=== PATIENT | male | born 1985 | race Caucasian/White ===

== ENCOUNTER 2018-04-26 14:57 | Emergency (ER) | payer OTHER ==
[2018-04-26 15:12] VITALS: BP 164/95
[2018-04-26] MEDS ORDERED: OXYCODONE-ACETAMINOPHEN 5-325 MG TABLET PO ONE (15:33)
--- NOTE | 2018-04-26 15:35 | ER Document Report ---
ED Medical Screen (RME) - General Chief Complaint: Finger Injury Stated Complaint: THUMB INJURY Time Seen by Provider: 04/26/18 15:07 TRAVEL OUTSIDE OF THE [place] IN LAST 30 DAYS: No - HPI Patient complains to provider of: Left thumb injury Notes: 04/26/18 15:34 Patient is a 33-year-old otherwise healthy male, presenting to the emergency room complaining of injury to his left finger, was working on a riding lawnmower that was up on a stand and not running, when the lawnmower fell off of the stand crushing his thumb in the process, his last tetanus shot was within the last 2 years - Related Data Allergies/Adverse Reactions: amoxicillin Allergy (Verified 04/26/18 15:02) Penicillins Allergy (Verified 04/26/18 15:02) Past Medical History Traumatic Medical History: Reports: Hx Traumatic Brain Injury Physical Exam - Vital signs Vitals: Temp Pulse Resp BP Pulse Ox 97.4 F 82 16 164/95 H 97 04/26/18 15:11 04/26/18 15:11 04/26/18 15:11 04/26/18 15:11 04/26/18 15:11 Course - Vital Signs Vital signs: Temp Pulse Resp BP Pulse Ox 97.4 F 82 16 164/95 H 97 04/26/18 15:11 04/26/18 15:11 04/26/18 15:11 04/26/18 15:11 04/26/18 15:11
--- NOTE | 2018-04-26 16:16 | RADIOLOGY REPORT (SQ) ---
EXAM DESCRIPTION: FINGER LEFT COMPLETED DATE/TIME: 04/26/2018 4:01 pm REASON FOR STUDY: injury thumb . 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 COMPARISON: None. NUMBER OF VIEWS: Three views. TECHNIQUE: AP view of the left hand and lateral, and oblique images acquired of the left thumb. LIMITATIONS: None. FINDINGS: MINERALIZATION: Normal. BONES: There is a comminuted fracture extending throughout the 1st distal phalanx with displaced frac ture fragments at the tuft and at the base. SOFT TISSUES: Soft tissue swelling and irregularity at the 1st distal phalanx. No radiopaque foreign body. IMPRESSION: Soft tissue injury with comminuted fracture at the 1st distal phalanx with displaced fra cture fragments at the tuft and at the base. COMMENT: SITE OF TRAUMA/COMPLAINT MARKED/STAMP COMPLETED: NOT APPLICABLE. TECHNICAL DOCUMENTATION: JOB ID: [id number] [employer]- All Rights Reserved Reading location - IP/workstation name: [email or web address]
[2018-04-26] MEDS ORDERED: LIDOCAINE 1% INJ-PF (10 MG/ML) 30 ML SDV INJ ONE (16:19)
[2018-04-26] MEDS ORDERED: BUPIVACAINE HCL 0.5 % INJ/PF 30 ML SDV INJ ONE (16:19)
--- NOTE | 2018-04-26 19:28 | ER Document Report ---
ED General - General Chief Complaint: Finger Injury Stated Complaint: THUMB INJURY Time Seen by Provider: 04/26/18 15:07 Notes: 33-year-old female presents emergency department stating that he was working on a lawnmower at work when the lucinda gave out and it landed on his left thumb. States that his biggest injuries to his left thumb however he also has some pain to the tip of his left second digit. He complains of severe pain, states he cannot bend his left thumb. States that there is quite a bit of bleeding. TRAVEL OUTSIDE OF THE [place] IN LAST 30 DAYS: No - Related Data Allergies/Adverse Reactions: amoxicillin Allergy (Verified 04/26/18 15:02) Penicillins Allergy (Verified 04/26/18 15:02) Past Medical History - General Information source: Patient - Social History Smoking Status: Current Every Day Smoker Cigarette use (# per day): Yes Frequency of alcohol use: Occasional Drug Abuse: None Family History: None Patient has suicidal ideation: No Patient has homicidal ideation: No Renal/ Medical History: Denies: Hx Peritoneal Dialysis Traumatic Medical History: Reports: Hx Traumatic Brain Injury Review of Systems - Review of Systems Constitutional: No symptoms reported Cardiovascular: No symptoms reported Respiratory: No symptoms reported Musculoskeletal: See HPI Skin: See HPI Neurological/Psychological: No symptoms reported. denies: Numbness, Tingling Physical Exam - Vital signs Vitals: Temp Pulse Resp BP Pulse Ox 97.4 F 82 16 164/95 H 97 04/26/18 15:11 04/26/18 15:11 04/26/18 15:11 04/26/18 15:11 04/26/18 15:11 Interpretation: Hypertensive - General General appearance: Alert, Other - Appears mildly uncomfortable and somewhat anxious. In distress: Mild - HEENT Head: Normocephalic, Atraumatic Eyes: Normal Pupils: PERRL Mucous membranes: Moist - Respiratory Respiratory status: No respiratory distress - Cardiovascular Pulses: Normal: Radial - Extremities Notes: left thumb has multiple lacerations, the nail is almost completely avulsed, there is a laceration to the nail bed, there is some arteriolar bleeding from the ulnar aspect of the nailbed and there is a moderate amount of avulsed skin. There is a laceration to the palmar aspect of the left thumb along the IP crease, 2 cm long and a second laceration along the base of the nail, continuing radially that is 1.5 cm long. Sensation is intact along the tip of the finger. Initially he was unable to move his finger although this turned out to be due to pain. After suturing and numbing patient was able to minimally flex and extend his left thumb at the IP joint, no difficulty flexing or extending at the MCP joint. Course - Re-evaluation Re-evalutation: 04/26/18 19:28 X-ray shows soft tissue injury with comminuted fracture at the first distal phalanx with a displaced fracture fragments at the tuft and at the base. The wound was irrigated, discussed with Dr. Alcantar the orthopedic surgeon on-call , states that we should irrigate it, start antibiotics, approximated as best as I can and splinted and dressed it with Xeroform gauze. Patient should follow- up with Dr. Daniels on Sunday. Dr. Alcantar recommended Augmentin however reviewing the patient's allergies he is allergic to amoxicillin so instead of started on Augmentin patient will be started on Bactrim and Keflex. - Vital Signs Vital signs: Temp Pulse Resp BP Pulse Ox 97.4 F 82 16 164/95 H 97 04/26/18 15:11 04/26/18 15:11 04/26/18 15:11 04/26/18 15:11 04/26/18 15:11 Procedures - Immobilization Left Thumb Pre-Proc Neuro Vasc Exam: Normal Immobilizer type: Finger splint (Static) Performed by: RN Post-Proc Neuro Vasc Exam: Abnormal - Digital block still intact, sensation absent to the left thumb due to digital block. Alignment checked and good: Yes - Laceration/Wound Repair Left Thumb Wound length (cm): 4 - 4 cm total Wound's Depth, Shape: Into muscle, Irregular, Flap, Nail-avulsed, Contused tissue Laceration pre-procedure: Sterile PPE donned, Chloraprep applied, Sterile drapes applied, Shur-Clens applied Anesthetic type: Other - Combination of 1% lidocaine and 0.5% bupivacaine Volume Anesthetic (mLs): 10 Wound explored: No foreign body removed, Contaminated - Grease and dirt. Irrigated w/ Saline (mLs): 1,000 Wound Debrided: Moderate Wound Repaired With: Sutures Suture Size/Type: 5:0, Ethilon Number of Sutures: 10 Layer Closure?: No Post-procedure wound care: Sterile dressing applied, Splint applied Post-procedure NV exam normal: Yes Complications: No Discharge - Discharge Clinical Impression: Fracture of thumb, left, open Qualifiers: Encounter type: initial encounter Phalanx: distal Fracture alignment: displaced Qualified Code(s): S62.522B - Displaced fracture of distal phalanx of left thumb, initial encounter for open fracture Laceration of left thumb with damage to nail Qualifiers: Encounter type: initial encounter Foreign body presence: without foreign body Qualified Code(s): S61.112A - Laceration without foreign body of left thumb with damage to nail, initial encounter Condition: Stable Disposition: HOME, SELF-CARE Instructions: Laceration Care ([facility]) Additional Instructions: Please keep the wound clean and dry. Please keep wearing the splint. Please follow-up with Dr. Daniels in his office on Sunday. Please call first thing Sunday morning to arrange an outpatient appointment. Please return to the emergency department for any new or concerning symptoms. Take the antibiotics as directed until they are gone. Prescriptions: Cephalexin Monohydrate [Keflex 500 mg Capsule] 1,000 mg PO BID #28 capsule Oxycodone HCl/Acetaminophen [Percocet 5-325 mg Tablet] 1 - 2 tab PO ASDIR PRN # 15 tablet PRN Reason: Sulfamethoxazole/Trimethoprim [Bactrim Ds Tablet] 1 each PO BID #14 tablet Forms: Return to Work Referrals: ARRON DANIELS DO [ACTIVE STAFF] - 04/29/18
[2018-04-26] MEDS ORDERED: SULFAMETHOXAZOLE/TRIMETHOPRIM 800-160 MG TABLET PO ONE (19:30)
[2018-04-26] MEDS ORDERED: CEPHALEXIN 500 MG CAPSULE PO ONE (19:30)
== END 2018-04-26 20:00 | disposition home or self-care (01) ==
LOC: ER 14:57
DX: S62.522B Displaced fracture of distal phalanx of left thumb, initial encounter for open fracture (principal); W20.8XXA Other cause of strike by thrown, projected or falling object, initial encounter; Y93.89 Activity, other specified; Y99.8 Other external cause status; F17.210 Nicotine dependence, cigarettes, uncomplicated; Z88.0 Allergy status to penicillin
CPT/HCPCS: 99283; 73140; 12002; J3490 ×2

== ENCOUNTER 2018-04-29 08:07 | Emergency (ER) | payer OTHER ==
--- NOTE | 2018-04-29 08:21 | ER Document Report ---
HPI - HPI Patient complains to provider of: belkysjose wound rechecked Onset: Other Pain Level: 4 Context: 33-year-old male had a riding lawnmower fall on his left thumb causing comminuted tuft fracture and distal phalanx fx with skin injury, nail removed. He was seen in the emergency department. He was sutured and they put Xeroform gauze over it. He is concerned because it is still oozing blood. They went to Dr. Daniels's office today and was given paperwork to fill out and will schedule an appointment this week told him to come to the emergency room to check the wound. Associated Symptoms: None Exacerbated by: Denies, Movement Relieved by: Denies Past Medical History - General Information source: Patient - Social History Smoking Status: Current Every Day Smoker Frequency of alcohol use: None Drug Abuse: None Occupation: [employer] Lives with: Family Family History: None - Medical History Medical History: Negative Renal/ Medical History: Denies: Hx Peritoneal Dialysis Traumatic Medical History: Reports: Hx Traumatic Brain Injury Surgical Hx: Negative Vertical Provider Document - CONSTITUTIONAL Agree With Documented VS: Yes Exam Limitations: No Limitations General Appearance: No Apparent Distress - INFECTION CONTROL TRAVEL OUTSIDE OF THE [place] IN LAST 30 DAYS: No - MUSCULOSKELETAL/EXTREMETIES Musculoskeletal/Extremeties: Tender - Minimal tender there is no signs of infection I did leave the Xeroform gauze on because there is no erythema to the thumb at all. The sutured area that is visible from the plantar thumb is clean and healthy-appearing - NEURO Motor/Sensory: No Sensory Deficit Course - Re-evaluation Re-evalutation: 04/29/18 I washed the wound liberally with antibacterial soap and water dried, bacitracin , Telfa, gauze and Coban and replaced the splint and told them that they needed to follow-up with Dr. daniels tomorrow. Patient did state that it is not bleeding or oozing like it was yesterday. Vital signs were stable and he is afebrile. See the scanned part of the chart that has is vital signs on it. I took his vital signs but did not know how to put them in [employer] Temperature was 97.8. Josefina RN was to put them in the system. Discharge - Discharge Clinical Impression: Encounter for wound re-check Condition: Good Disposition: HOME, SELF-CARE Instructions: Fractured Finger ([facility]), Laceration Care ([facility]) Additional Instructions: Schedule your appointment for recheck with Dr. daniels in the next day or 2 It is okay to remove the splint and keep the wound open to air if you prefer there is absolutely no risk of bending or trauma Bacitracin can be used Return to the emergency room for any fever swelling redness pus Referrals: ARRON DANIELS DO [ACTIVE STAFF] - 04/30/18
== END 2018-04-29 08:45 | disposition home or self-care (01) ==
LOC: ER 08:07
DX: S62.522D Displaced fracture of distal phalanx of left thumb, subsequent encounter for fracture with routine healing (principal); S61.102D Unspecified open wound of left thumb with damage to nail, subsequent encounter; W20.8XXD Other cause of strike by thrown, projected or falling object, subsequent encounter; F17.200 Nicotine dependence, unspecified, uncomplicated
CPT/HCPCS: 99282

== ENCOUNTER 2018-05-03 21:49 | Emergency (ER) | payer OTHER ==
[2018-05-03 21:55] VITALS: BP 124/81
[2018-05-04] MEDS ORDERED: LIDOCAINE 1%/EPINEPHRINE INJ 20 ML VIAL INJ ONE (00:07)
--- NOTE | 2018-05-04 02:22 | RADIOLOGY REPORT (SQ) ---
EXAM DESCRIPTION: XR HAND 3 OR MORE VIEWS COMPLETED DATE/TME: 05/04/2018 01:29 CLINICAL HISTORY: 33 years, Male, eval for infection left thumb COMPARISON: 04/26/2018 FINDINGS: Redemonstrated comminuted mildly displaced fracture of the left first distal phalanx. Minimal periosteal elevation. No lytic osseous lesions. Mild soft tissue edema. IMPRESSION: 1. Redemonstrated comminuted fractures of the left first distal phalanx. 2. No definite radiographic evidence of osteomyelitis. 2011 [employer]- All Rights Reserved
[2018-05-04] MEDS ORDERED: DOXYCYCLINE HYCLATE 100 MG TABLET PO ONE (02:27)
--- NOTE | 2018-05-04 02:29 | ER Document Report ---
ED General - General Chief Complaint: Wound Recheck Stated Complaint: L THUMB DISCHARGE Time Seen by Provider: 05/03/18 23:52 Mode of Arrival: Ambulatory Information source: Patient Notes: Patient is a 33-year-old male who presents with possible infection to his left thumb. Patient reports he was seen here approximately 10 days ago, had a fracture in his thumb and had sutures placed. Patient reports he has been trying to follow-up with [facility] as directed, reports that he has not been able to see or so due to some type of insurance issues. TRAVEL OUTSIDE OF THE [place] IN LAST 30 DAYS: No - Related Data Allergies/Adverse Reactions: amoxicillin Allergy (Verified 04/29/18 08:23) Penicillins Allergy (Verified 04/29/18 08:23) Past Medical History - General Information source: Patient - Social History Smoking Status: Current Every Day Smoker Frequency of alcohol use: None Drug Abuse: None Family History: None Patient has suicidal ideation: No Patient has homicidal ideation: No - Medical History Medical History: Negative Renal/ Medical History: Denies: Hx Peritoneal Dialysis Traumatic Medical History: Reports: Hx Traumatic Brain Injury Surgical Hx: Negative - Immunizations Immunizations up to date: Yes Hx Diphtheria, Pertussis, Tetanus Vaccination: Yes Review of Systems - Review of Systems Constitutional: No symptoms reported EENT: No symptoms reported Cardiovascular: No symptoms reported Respiratory: No symptoms reported Gastrointestinal: No symptoms reported Genitourinary: No symptoms reported Male Genitourinary: No symptoms reported Musculoskeletal: No symptoms reported Skin: See HPI Hematologic/Lymphatic: No symptoms reported Neurological/Psychological: No symptoms reported Physical Exam - Vital signs Vitals: Temp Pulse Resp BP Pulse Ox 97.3 F 57 L 18 124/81 99 05/03/18 21:54 05/03/18 21:54 05/03/18 21:54 05/03/18 21:54 05/03/18 21:54 - Notes Notes: PHYSICAL EXAMINATION: GENERAL: Well-appearing, well-nourished and in no acute distress. HEAD: Atraumatic, normocephalic. EYES: Pupils equal round and reactive to light, extraocular movements intact, sclera anicteric, conjunctiva are normal. ENT: Nares patent, oropharynx clear without exudates. Moist mucous membranes. NECK: Normal range of motion, supple without lymphadenopathy. LUNGS: Breath sounds clear to auscultation bilaterally and equal. No wheezes rales or rhonchi. HEART: Regular rate and rhythm without murmurs ABDOMEN: Soft, nontender, nondistended abdomen. No guarding, no rebound. No masses appreciated. Musculoskeletal: Normal range of motion, no pitting or edema. No cyanosis. NEUROLOGICAL: Cranial nerves grossly intact. Normal speech, normal gait. Normal sensory, motor exams PSYCH: Normal mood, normal affect. SKIN: Erythema, swelling and yellow drainage noted to left thumb at laceration site. No streaking. No swelling in the hand itself.. Course - Re-evaluation Re-evalutation: Right-hand dominant patient who presents with request for suture removal and evaluation of possible infection to his incision. Sutures were removed from left thumb, digital block applied to left thumb and thumb was cleaned thoroughly. Patient will be started on additional antibiotic for cellulitis of the wound. Referral will be placed in case picker's box to see if she can assist patient with getting [facility] follow-up. - Vital Signs Vital signs: Temp Pulse Resp BP Pulse Ox 97.3 F 57 L 18 124/81 99 05/03/18 21:54 05/03/18 21:54 05/03/18 21:54 05/03/18 21:54 05/03/18 21:54 Discharge - Discharge Clinical Impression: Encounter for wound re-check, Encounter for removal of sutures Condition: Stable Disposition: HOME, SELF-CARE Additional Instructions: Cellulitis You have an infection of your skin and underlying soft tissues called cellulitis. This is due to bacteria, which can enter through any break in the skin, or even through an irritated hair follicle. Untreated, cellulitis will usually worsen. Antibiotics are required. Usually, warm packs or warm soaks, and elevation of the infected area are recommended. You should start getting better within 24 to 36 hours. Most infections respond quickly to the right medication. Follow-up care is important, however, to check for abscess (boil) formation, unsuspected foreign body, or resistant infection. If you develop fever, chills, or if the area of infection is becoming rapidly more swollen or painful, call the doctor at once. Prescriptions: Doxycycline Hyclate 100 mg PO BID #14 capsule Referrals: ARRON DANIELS DO [ACTIVE STAFF] - Follow up as needed
== END 2018-05-04 03:47 | disposition home or self-care (01) ==
LOC: ER 21:49
DX: S62.522D Displaced fracture of distal phalanx of left thumb, subsequent encounter for fracture with routine healing (principal); S61.012D Laceration without foreign body of left thumb without damage to nail, subsequent encounter; L03.012 Cellulitis of left finger; X58.XXXD Exposure to other specified factors, subsequent encounter
CPT/HCPCS: 99282; 73130; J3490

== ENCOUNTER 2019-01-19 22:18 | Emergency (ER) | payer SELFPAY ==
[2019-01-19 22:43] VITALS: BP 138/86
[2019-01-19] MEDS ORDERED: CLINDAMYCIN HCL 150 MG CAPSULE PO ONE (22:54)
[2019-01-19] MEDS ORDERED: ONDANSETRON 4 MG TAB.RAPDIS PO ONE (22:56)
[2019-01-19] MEDS ORDERED: OXYCODONE-ACETAMINOPHEN 5-325 MG TABLET PO ONE (22:56)
--- NOTE | 2019-01-19 23:02 | ER Document Report ---
HPI - HPI Time Seen by Provider: 01/19/19 22:54 Pain Level: Denies Notes: Patient is a 33-year-old male who presents to the emergency department with chief complaint of left upper dental pain. Patient states that this pain developed yesterday and has gradually gotten worse. Patient states that this is happened before and thinks that he may have a dental abscess. Denies drainage but states that at times he will have a bad taste in his mouth. Denies fever. Denies facial swelling or tongue swelling. - CONSTITUTIONAL Constitutional: DENIES: Fever, Chills - EENT EENT: DENIES: Sore Throat, Ear Pain, Eye problems - NEURO Neurology: DENIES: Headache, Weakness, Vision blurred, Dizzinesss / Vertigo - CARDIOVASCULAR Cardiovascular: DENIES: Chest pain - RESPIRATORY Respiratory: DENIES: Trouble Breathing, Coughing - GASTROINTESTINAL Gastrointestinal: DENIES: Abdominal Pain, Black / Bloody Stools - URINARY Urinary: DENIES: Dysuria, Urgency, Frequency - MUSCULOSKELETAL Musculoskeletal: DENIES: Extremity pain - DERM Skin Color: Normal Past Medical History - General Information source: Patient - Social History Smoking Status: Unknown if Ever Smoked Family History: None Patient has suicidal ideation: No Patient has homicidal ideation: No - Past Medical History Cardiac Medical History: Reports: None Pulmonary Medical History: Reports: None Other: HX. MULTIPLE DENTAL CARIES, HX. DENTAL ABSCESSES Neurological Medical History: Reports: None Endocrine Medical History: Reports: None Renal/ Medical History: Reports: None. Denies: Hx Peritoneal Dialysis Malignancy Medical History: Reports None GI Medical History: Reports: None Musculoskeletal Medical History: Reports None Psychiatric Medical History: Reports: None Traumatic Medical History: Reports: Hx Traumatic Brain Injury Past Surgical History: Reports: None - Immunizations Immunizations up to date: Yes Hx Diphtheria, Pertussis, Tetanus Vaccination: Yes Vertical Provider Document - CONSTITUTIONAL Agree With Documented VS: Yes Exam Limitations: No Limitations General Appearance: No Apparent Distress - INFECTION CONTROL TRAVEL OUTSIDE OF THE [place] IN LAST 30 DAYS: No - HEENT HEENT: Normocephalic Mouth Diagram: 1 - Dental Abscess with multiple nearby dental fractures and dental caries - NECK Neck: Normal Inspection - RESPIRATORY Respiratory: Breath Sounds Normal, No Respiratory Distress - CARDIOVASCULAR Cardiovascular: Regular Rate, Regular Rhythm - GI/ABDOMEN Gastrointestinal: Abdomen Soft, Abdomen Non-Tender - NEURO Level of Consciousness: Awake, Alert, Appropriate - DERM Integumentary: Warm, Dry Course - Re-evaluation Re-evalutation: 01/20/19 01:04 Patient was medicated prior to I&D of dental abscess. Suction available for procedure. Dental abscess incised with 11 blade, and purulent discharge noted. Patient was able to suction mouth during the procedure, airway remained patent, patient tolerated procedure well. Patient placed on clindamycin times 1 week. Patient states that he has taken this medication in the past without any issues. Patient educated on signs and symptoms of when to return such as swelling of face, swelling of tongue, worsening of dental abscess, Or any other concerning signs or symptoms. Patient given referral to the [facility]. He said his last abscess was a few years ago. Patient agrees with treatment plan. - Vital Signs Vital signs: Temp Pulse Resp BP Pulse Ox 98.3 F 86 138/86 H 96 01/19/19 22:42 01/19/19 22:42 01/19/19 22:42 01/19/19 22:42 Discharge - Discharge Clinical Impression: Dental abscess, Dental caries Condition: Stable Disposition: HOME, SELF-CARE Instructions: Oral Narcotic Medication ([facility]) Additional Instructions: Today you have been diagnosed with a dental abscess. We did jaylyn your abscess, which should intermittently drain. Have given you your first dose of clindamycin, which is an antibiotic that you are being prescribed. Please complete the dose as prescribed. Return to the emergency department for worsening of symptoms such as facial swelling, fever, difficulty swallowing, or any other concerning signs or symptoms. Please follow-up with a dentist or this will continue to occur. Dental Infection or Abscess You have an infection, perhaps an abscess (pus formation) of the gum around one of your teeth, which is probably decayed. If there is an abscess, it may drain on its own or it may need to be opened or lanced. Severe swelling or drainage around a tooth usually means a deep dental abscess which usually requires evaluation and treatment by a dentist or oral surgeon. Antibiotics may be prescribed while awaiting dental treatment. If you develop high fever with chills, worsening pain, or increasing swelling in the area, see a dentist or oral surgeon immediately or return to the Emergency Department immediately. Prescriptions: Clindamycin HCl [Cleocin HCl] 300 mg PO QID 7 Days #56 capsule Referrals: [facility] [Provider Group] - Follow up in 3-5 days
[2019-01-19] MEDS ORDERED: HYDROCODONE/ACETAMINOPHEN 5-325 MG (6 TAB/ER DISP) PO PRN (23:14)
== END 2019-01-20 | disposition home or self-care (01) ==
LOC: ER 22:18
DX: K04.7 Periapical abscess without sinus (principal); K02.9 Dental caries, unspecified; K08.89 Other specified disorders of teeth and supporting structures
CPT/HCPCS: 99282; 41800; S0119

== ENCOUNTER 2020-02-02 18:50 | Emergency (ER) | payer SELFPAY ==
[2020-02-02] MEDS ORDERED: LIDOCAINE 1%/EPINEPHRINE INJ 20 ML VIAL INJ ONE (20:00)
--- NOTE | 2020-02-02 20:28 | ER Document Report ---
ED General - General Chief Complaint: Abscess Stated Complaint: MOUTH ABSCESS Time Seen by Provider: 02/02/20 19:57 Mode of Arrival: Ambulatory Information source: Patient TRAVEL OUTSIDE OF THE [place] IN LAST 30 DAYS: No - HPI Notes: Patient comes in claiming of severe pain to his anterior palate. He states it is moderate to severe in intensity. It is throbbing. It is constant. It is worse with touch and better if left alone. No fevers. No known trauma. 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 - Immunizations Immunizations up to date: Yes Hx Diphtheria, Pertussis, Tetanus Vaccination: Yes Review of Systems - Review of Systems Constitutional: denies: Chills, Fever Cardiovascular: denies: Chest pain, Palpitations Respiratory: denies: Cough, Short of breath -: Yes All other systems reviewed and negative Physical Exam - Vital signs Vitals: Temp Pulse Resp BP Pulse Ox 99.2 F 94 16 146/88 H 97 02/02/20 19:10 02/02/20 19:10 02/02/20 19:10 02/02/20 19:10 02/02/20 19:10 Interpretation: Normal - General General appearance: Appears well, Alert - HEENT Head: Normocephalic, Atraumatic Eyes: Normal Pupils: PERRL Mucous membranes: Moist Pharynx: Other - The anterior left side of the palate has a large fluctuant tender mass consistent with an abscess. - Respiratory Respiratory status: No respiratory distress Chest status: Nontender Breath sounds: Normal Chest palpation: Normal - Cardiovascular Rhythm: Regular Heart sounds: Normal auscultation Murmur: No - Abdominal Inspection: Normal Distension: No distension Bowel sounds: Normal Tenderness: Nontender Organomegaly: No organomegaly - Back Back: Normal, Nontender - Extremities General upper extremity: Normal inspection, Nontender, Normal color, Normal ROM, Normal temperature General lower extremity: Normal inspection, Nontender, Normal color, Normal ROM, Normal temperature, Normal weight bearing. No: Galina's sign - Neurological Neuro grossly intact: Yes Cognition: Normal Orientation: AAOx4 [place] Coma Scale Eye Opening: Spontaneous [place] Coma Scale Verbal: Oriented [place] Coma Scale Motor: Obeys Commands Zeb Coma Scale Total: 15 Speech: Normal Motor strength normal: LUE, RUE, LLE, RLE Sensory: Normal - Psychological Associated symptoms: Normal affect, Normal mood - Skin Skin Temperature: Warm Skin Moisture: Dry Skin Color: Normal Course - Vital Signs Vital signs: Temp Pulse Resp BP Pulse Ox 99.2 F 94 16 146/88 H 97 02/02/20 19:10 02/02/20 19:10 02/02/20 19:10 02/02/20 19:10 02/02/20 19:10 Procedures - Incision and Drainage Face Type: Simple Anesthetic type: 1% Lidocaine w/epi mL's of anesthetic: 1 Blade size: 11 Incision Method: Incision made by scalpel Amount/type of drainage: 5 Discharge - Discharge Clinical Impression: Abscess of palate Condition: Stable Disposition: HOME, SELF-CARE Instructions: Abscess ([facility]), Oral Narcotic Medication ([facility]), Trimethoprim-Sulfa ([facility]), Post Incision and Drainage Additional Instructions: Please see a dentist as soon as possible Prescriptions: Sulfamethoxazole/Trimethoprim [Bactrim Ds Tablet] 1 each PO BID 7 Days #14 tablet Hydrocodone/Acetaminophen [[place] 5-325 mg Tablet] 1 tab PO Q6 PRN 3 Days #12 tablet PRN Reason: Forms: Return to Work Referrals: [facility] [Provider Group] - Follow up in 3-5 days
[2020-02-02 20:34] VITALS: BP 156/96
== END 2020-02-02 20:39 | disposition home or self-care (01) ==
LOC: ER 18:50
PROC: 0C92XZZ Drainage of Hard Palate, External Approach (ICD-10-PCS; principal; 2020-02-02)
DX: K12.2 Cellulitis and abscess of mouth (principal); Z88.0 Allergy status to penicillin; F17.200 Nicotine dependence, unspecified, uncomplicated
CPT/HCPCS: 99283; 42000; J3490